=== PATIENT | female | born 1970 | race Caucasian/White ===

== ENCOUNTER 2018-07-25 21:53 | Emergency (ER) | payer BC, OTHER ==
[~2018-07-25] VITALS: Ht 170.2 cm; Wt 82.1 kg
[~2018-07-25 21:53] MED LIST: CIPRO500 MG PO; CYCLOBENZAPRINE5 MG PO; IBUPROFEN400 MG PO; INDERAL PO; LOSARTAN PO; PROPRANOLOL HCL10 MG PO; TYLENOL # 31 EA PO; TYLENOL WITH C1 EAC1 PO; Z TOPAMAX PO; Z.0.FOLIC ACID0.4 MG PO; Z.0.LAMICTAL200 MG PO; Z.0.MOTRIN600 MG PO; Z.0.ZOLOFT100 MG PO; [UNRECOGNIZED DRUG - CODE] PO
--- OUTSIDE RECORDS SUMMARY | 2018-07-25 21:56 | XMS REPORT | Continuity of Care Document ---
Author Author [facility] Address Unknown Phone Unavailable Problems Problem Status Onset Date Classification Date Reported Comments Source Lower respiratory tract infection 01/28/2017 Diagnosis 01/28/2017 [facility] Medications Medication Details Route Status Patient Instructions Ordering Provider Order Date Source Acetaminophen 300 MG / Codeine Phosphate 60 MG Oral Tablet acetaminophen 300 mg-codeine 60 mg tablet TAKE 1 TABLET BY MOUTH EVERY 4 TO 6 HOURS NEEDED FOR PAIN Active [facility] Amoxicillin 875 MG / Clavulanate 125 MG Oral Tablet amoxicillin 875 mg-potassium clavulanate 125 mg tablet Active [facility] 12 HR Amoxicillin 1000 MG / Clavulanate 62.5 MG Extended Release Oral Tablet amoxicillin-potassium clavulanate 1,000 mg-62.5 mg tablet,ext.rel 12hr Active [facility] Carbinoxamine maleate 4 MG Oral Tablet carbinoxamine 4 mg tablet TAKE 1 OR 2 TABLETS BY MOUTH EVERY 8 HOURS Active [facility] Chlordiazepoxide Hydrochloride 5 MG / Clidinium bromide 2.5 MG Oral Capsule chlordiazepoxide-clidinium 5 mg-2.5 mg capsule Active [facility] Cyclobenzaprine hydrochloride 10 MG Oral Tablet cyclobenzaprine 10 mg tablet TAKE 1 TABLET BY MOUTH 3 TIMES A DAY Active [facility] Diazepam 10 MG Oral Tablet diazepam 10 mg tablet TAKE 1/2 TO 1 TABLET BY MOUTH ONCE A DAY Active [facility] doxycycline hyclate 100 MG Oral Capsule doxycycline hyclate 100 mg capsule Active [facility] Fenofibrate 160 MG Oral Tablet fenofibrate 160 mg tablet TAKE 1 TABLET(S) BY MOUTH DAILY Active [facility] Fluarix Quad (PF) 60 mcg (15 mcg x 4)/0.5 mL IM syringe Fluarix Quad (PF) 60 mcg (15 mcg x 4)/0.5 mL IM syringe TO BE ADMINISTERED BY PHARMACIST FOR IMMUNIZATION Active [facility] Fluconazole 150 MG Oral Tablet fluconazole 150 mg tablet Active [facility] Acetaminophen 325 MG / Hydrocodone Bitartrate 10 MG Oral Tablet hydrocodone 10 mg-acetaminophen 325 mg tablet Active [facility] Acetaminophen 325 MG / Hydrocodone Bitartrate 7.5 MG Oral Tablet hydrocodone 7.5 mg-acetaminophen 325 mg tablet Active [facility] 12 HR Hyoscyamine Sulfate 0.375 MG Extended Release Oral Tablet hyoscyamine ER 0.375 mg tablet,extended release,12 hr Active [facility] Hydrochlorothiazide 12.5 MG / Losartan Potassium 50 MG Oral Tablet losartan 50 mg-hydrochlorothiazide 12.5 mg tablet (06-03)TAKE 1 TABLET BY MOUTH EVERY DAY Active [facility] Metronidazole 500 MG Oral Tablet metronidazole 500 mg tablet Active [facility] nabumetone 750 MG Oral Tablet nabumetone 750 mg tablet TAKE 2 TABLET(S) BY MOUTH DAILY Active [facility] Prednisone 20 MG Oral Tablet prednisone 20 mg tablet Active [facility] 200 ACTUAT Albuterol 0.09 MG/ACTUAT Metered Dose Inhaler [ProAir] ProAir HFA 90 mcg/actuation aerosol inhaler INHALE 1-2 PUFFS BY MOUTH EVERY 4-6 HOURS NEEDED Active [facility] Sertraline 100 MG Oral Tablet sertraline 100 mg tablet TAKE 1 TABLET BY MOUTH ONCE DAILY Active [facility] Sertraline 50 MG Oral Tablet sertraline 50 mg tablet TAKE 1 TABLET BY MOUTH EVERY DAY Active [facility] Temazepam 30 MG Oral Capsule temazepam 30 mg capsule TAKE ONE CAPSULE BY MOUTH DAILY BEFORE BEDTIME FOR SLEEP Active [facility] Azithromycin 250 MG Oral Tablet Zithromax Z-Sony 250 mg tablet TAKE 2 TABLETS (500 MG) BY ORAL ROUTE ONCE DAILY FOR 1 DAY THEN 1 TABLET (250 MG) BY ORAL ROUTE ONCE DAILY FOR 4 DAYS Active [facility] Allergies, Adverse Reactions, Alerts Substance Category Reaction Severity Reaction type Status Date Reported Comments Source Cipro Rash Allergy to substance 01/28/2017 [facility] Sulfa (Sulfonamide Antibiotics) Rash Allergy to substance 01/28/2017 [facility] Tramadol Rash Allergy to substance 01/28/2017 [facility] Neurontin Decreased blood pressure Allergy to substance 01/28/2017 [facility] Depakote Decreased blood pressure Allergy to substance 01/28/2017 [facility] Immunizations Immunization Date Given Site Status Last Updated Comments Source Results Order Name Results Value Reference Range Date Interpretation Comments Source Vital Signs Vital Sign Value Date Comments Source Diastolic (mm Hg) 86 01/28/2017 [facility] Height 67 01/28/2017 [facility] Systolic (mm Hg) 122 01/28/2017 [facility] Weight 175 01/28/2017 [facility] Encounters Location Location Details Encounter Type Encounter Number Reason For Visit Attending Provider ADM Date DC Date Status Source [place] - [facility] - [id number] Caraballo, [facility] [address] [place] [address], Ph. [phone] [id number] Joe Caraballo 01/28/2017 [facility] Procedures Procedure Code Date Perfomer Comments Source Hysterectomy [facility]
--- OUTSIDE RECORDS SUMMARY | 2018-07-25 21:56 | XMS REPORT | Encounter Summary ---
Author Organization Unknown Address [address] [place] [address] Phone [phone] Reason for Visit Medical Complaint Instructions 1. Lower respiratory tract infection Zithromax Z-Sony 250 mg tablet Discussion Note: None recorded. Patient educational handouts: No information available. Plan of Care Patient Instructions continue proair as needed. otc heart healthy cough medication as needed. take medication as directed. follow up pcp and have chest xray if not better. Reminders Provider Appointments None recorded. Lab None recorded. Referral None recorded. Procedures None recorded. Surgeries None recorded. Imaging None recorded. Medications Name Start Date acetaminophen 300 mg-codeine 60 mg tablet TAKE 1 TABLET BY MOUTH EVERY 4 TO 6 HOURS NEEDED FOR PAIN amoxicillin 875 mg-potassium clavulanate 125 mg tablet amoxicillin-potassium clavulanate 1,000 mg-62.5 mg tablet,ext.rel 12hr carbinoxamine 4 mg tablet TAKE 1 OR 2 TABLETS BY MOUTH EVERY 8 HOURS chlordiazepoxide-clidinium 5 mg-2.5 mg capsule cyclobenzaprine 10 mg tablet TAKE 1 TABLET BY MOUTH 3 TIMES A DAY diazepam 10 mg tablet TAKE 1/2 TO 1 TABLET BY MOUTH ONCE A DAY doxycycline hyclate 100 mg capsule fenofibrate 160 mg tablet TAKE 1 TABLET(S) BY MOUTH DAILY Fluarix Quad [id number] (PF) 60 mcg (15 mcg x 4)/0.5 mL IM syringe TO BE ADMINISTERED BY PHARMACIST FOR IMMUNIZATION fluconazole 150 mg tablet hydrocodone 10 mg-acetaminophen 325 mg tablet hydrocodone 7.5 mg-acetaminophen 325 mg tablet hyoscyamine ER 0.375 mg tablet,extended release,12 hr losartan 50 mg-hydrochlorothiazide 12.5 mg tablet (06-03)TAKE 1 TABLET BY MOUTH EVERY DAY metronidazole 500 mg tablet nabumetone 750 mg tablet TAKE 2 TABLET(S) BY MOUTH DAILY prednisone 20 mg tablet ProAir HFA 90 mcg/actuation aerosol inhaler INHALE 1-2 PUFFS BY MOUTH EVERY 4-6 HOURS NEEDED sertraline 100 mg tablet TAKE 1 TABLET BY MOUTH ONCE DAILY sertraline 50 mg tablet TAKE 1 TABLET BY MOUTH EVERY DAY temazepam 30 mg capsule TAKE ONE CAPSULE BY MOUTH DAILY BEFORE BEDTIME FOR SLEEP Zithromax Z-Sony 250 mg tablet TAKE 2 TABLETS (500 MG) BY ORAL ROUTE ONCE DAILY FOR 1 DAY THEN 1 TABLET (250 MG) BY ORAL ROUTE ONCE DAILY FOR 4 DAYS Medications Administered None recorded. Vitals Height Weight BMI Blood Pressure 5 ft 7 in 175 lbs 27.4 kg/m2 122/86 mm[Hg] Lab Results None recorded. Allergies Code Code System Name Reaction Severity Status Onset 20341113 RxNorm Cipro Rash Active 21631020 Rx[facility] Depakote Decreased Blood Pressure Active 19640219 Rx[facility] Neurontin Decreased Blood Pressure Active Sulfa (Sulfonamide Antibiotics) Rash Active [facility] Tramadol Rash Active Problems None recorded. Procedures Date Name Performed by Hysterectomy Information not available Vaccine List None recorded. Social History Smoking Status Current Every Day Smoker Past Encounters 01/28/2017 Lower Respiratory Tract Infection Joe Caraballo, [facility]: [address] [place] [address], Ph. History of Present Illness Wheezing / Cough Reported By: Patient HPI: Location: chest. Quality: tightness, wheezing. Severity: moderate. Duration: constant. Onset/Timing: gradual. Context: no sick contacts, no foreign travel, smoker. Modifying factors: OTC medication. Associated Symptoms: no fever, no chills, no sweats, no chest pain, no edema, no heartburn, no sputum production, no significant weight gain, no significant weight loss, no morning cough, no post nasal drip, no sore throat, no nausea, no vomiting, no diarrhea, no rash, no muscle aches, no headache, shortness of breath, wheezing Review of Systems:ROS as noted in the HPI Review of Systems Basic Reported By: Patient Physical Exam Adult Basic, Adult Female Complete Reported By: Patient Constitutional: General Appearance: healthy-appearing, well-nourished, well-developed. Level of Distress: NAD. Ambulation: ambulating normally Psychiatric: Mental Status: active and alert Eyes: Lids and Conjunctivae: non-injected, no discharge Ftl-Qzjg-Cvwql-Throat: Ears: no lesions on external ear, no outer ear tenderness, EACs clear, TMs clear. Hearing: no hearing loss. Nose: no lesions on external nose, nares patent, no septal deviation, nasal passages clear, no sinus tenderness, no nasal discharge. Lips, Teeth, and Gums: no mouth or lip ulcers. Oropharynx: moist mucous membranes, no erythema, no exudates, tonsils not enlarged Neck: Neck: trachea midline. Lymph Nodes: no cervical LAD Lungs: Respiratory effort: no dyspnea, no tachypnea, no use of accessory muscles, no intercostal retractions. Auscultation: rhonchi Cardiovascular: Heart Auscultation: RRR, no murmurs
--- OUTSIDE RECORDS SUMMARY | 2018-07-25 21:56 | XMS REPORT ---
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 Allergies, Adverse Reactions, Alerts Allergy Name Allergy Type Status Severity Reaction(s) Onset Date Inactive Date Treating Clinician Comments morphine DA Active [place] 2015-04-08 00:00:00 pseudoephedrine HCl DA Active [place] 2009-10-22 00:00:00 propoxyphene DA Active [place] 2009-10-22 00:00:00 divalproex sodium DA Active 2009-10-22 00:00:00 sulfamethoxazole DA Active [place] 2009-10-22 00:00:00 trimethoprim DA Active [place] 2009-10-22 00:00:00 gabapentin DA Active 2009-10-22 00:00:00 latex DA Active [place] 2009-10-22 00:00:00 Medications This patient has no known medications.
[2018-07-25] MEDS ORDERED: ONDANSETRON HCL INJ 2MG/ML 2ML 2 MG/ML VIAL IV STA (22:24)
[2018-07-25] MEDS ORDERED: SODIUM CHLORIDE 0.9% 1000ML 1,000 ML IV ONE (22:30)
[2018-07-25 23:20] LABS: CLARITY,URINE CLEAR (CLEAR); COLOR,URINE YELLOW (YELLOW)
[2018-07-25 23:21] LABS: BILIRUBIN,URINE NEGATIVE (NEGATIVE); KETONES,URINE NEGATIVE (NEGATIVE); LEUKOCYTE ESTERASE ,URINE NEGATIVE (NEGATIVE); NITRITE,URINE NEGATIVE (NEGATIVE); PROTEIN,URINE DIPSTICK NEGATIVE (NEGATIVE); URINE UROBILINOGEN 1 mg/dL (0.2 - 1)
[2018-07-25 23:22] LABS: PREGNANCY TEST, URINE NEGATIVE (NEGATIVE)
[2018-07-25 23:34] LABS: BACTERIA,URINE MANY /HPF; EPITHELIAL CELLS,URINE FEW /LPF; RBC,URINE 0-5 /HPF (0-5); WBC,URINE (MAN) 0-5 /HPF (0-5)
[2018-07-25 23:35] LABS: BASOPHILS # (AUTO) 0.1 (0.0-0.1); BASOPHILS % 0.8 % (0.0-1.0); EOSINOPHILS # (AUTO) 0.2 (0.0-0.4); EOSINOPHILS % 1.9 % (0.0-6.0); HEMATOCRIT 37.2 % (34.2-44.1); HEMOGLOBIN 12.7 g/dL (12.0-16.0); LYMPHOCYTES % 34.4 % (18.0-39.1); MEAN CORPUSCULAR HEMOGLOBIN 32.6 pg (28-32); MEAN CORPUSCULAR HGB CONC 34.1 g/dL (31-35); MEAN CORPUSCULAR VOLUME 95.4 fL (81-99); MONOCYTES # (AUTO) 0.3 (0.2-0.8); MONOCYTES % 3.5 % (4.4-11.3); NEUTROPHILS # (AUTO) 5.1 (2.1-6.9); NEUTROPHILS % 59.3 % (38.7-80.0); PLATELET COUNT 291 x10e3/uL (140-360); RED CELL DISTRIBUTION WIDTH 12.9 % (11.7-14.4)
--- NOTE | 2018-07-25 23:53 | Diagnostic Imaging Report ---
EXAM: CT Abdomen and Pelvis WITHOUT contrast INDICATION: right flank pain COMPARISON: CT abdomen and pelvis 07/08/2015 TECHNIQUE: Abdomen and pelvis were scanned utilizing a multidetector helical scanner from the lung base to the pubic symphysis without administration of IV contrast. Absence of intravenous contrast decreases sensitivity for detection of focal lesions and vascular pathology. Coronal and sagittal reformations were obtained. Routine protocol was performed. IV CONTRAST: None ORAL CONTRAST: Water COMPLICATIONS: None RADIATION DOSE: Total DLP: 503.5 mGy*cm Estimated effective dose: (DLP x 0.015 x size factor) mSv Dose modulation, iterative reconstruction, and/or weight based adjustment of the mA/kV was utilized to reduce the radiation dose to as low as reasonably achievable. FINDINGS: LINES and TUBES: None. LOWER THORAX: Unremarkable HEPATOBILIARY: No focal hepatic lesions. No biliary ductal dilation. GALLBLADDER: Absent SPLEEN: No splenomegaly. PANCREAS: No focal masses or ductal dilatation. ADRENALS: No adrenal nodules KIDNEYS/URETERS: No hydronephrosis. No cystic or solid mass lesions. No stones. GI TRACT: No abnormal distention, wall thickening, or evidence of bowel obstruction. Submucosal fat deposition in the ascending and transverse colon. Moderate volume stool. Appendix is normal. PELVIC ORGANS/BLADDER: Hysterectomy. Otherwise, unremarkable. LYMPH NODES: No lymphadenopathy. VESSELS: There is mild atherosclerotic disease in the aorta and major arterial branches. PERITONEUM / RETROPERITONEUM: No free air or fluid. BONES: There are degenerative changes in the lumbar spine, worse at L3-L4 and L4-L5 endplate sclerosis and vacuum disc. Old healed fracture of the left inferior pubic ramus. SOFT TISSUES: Postsurgical changes in the posterior lumbar soft tissues. Right lower back 1.3 cm sebaceous cyst. IMPRESSION: No acute abnormalities. No nephrolithiasis. Signed by: DR. Sarmad Bermeo MD on 07/25/2018 11:50 PM
[2018-07-25 23:56] LABS: ALANINE AMINOTRANSFERASE 16 IU/L (0-55); ALBUMIN 3.4 g/dL (3.5-5.0); ALBUMIN/GLOBULIN RATIO 1.3 (0.8-2.0); ALKALINE PHOSPHATASE 76 IU/L (40-150); ANION GAP 11.8 mmol/L (8-16); BLOOD UREA NITROGEN 13 mg/dL (7-26); BUN/CREATININE RATIO 17 (6-25); CALCIUM 8.9 mg/dL (8.4-10.2); CARBON DIOXIDE 22 mmol/L (22-29); CHLORIDE 107 mmol/L (98-107); CREATININE, SERUM 0.75 mg/dL (0.57-1.11); EST GLOMERULAR FILTRATION RATE > 60 ML/MIN (60-); GLUCOSE 100 mg/dL (74-118); POTASSIUM 3.8 mmol/L (3.5-5.1); SODIUM 137 mmol/L (136-145)
[2018-07-26 00:27] VITALS: BP 126/78
== END 2018-07-26 00:38 | disposition home or self-care (01) ==
LOC: ER 21:53
DX: R10.31 Right lower quadrant pain (principal); R11.0 Nausea; S39.011A Strain of muscle, fascia and tendon of abdomen, initial encounter; M54.5 Low back pain
CPT/HCPCS: 36415; 74176; 80053; 81001; 81025; 85025; 99284; J2405; J7030

== ENCOUNTER 2018-10-01 05:51 | Emergency (ER) | payer OTHER ==
[~2018-10-01] VITALS: Ht 170.2 cm; Wt 82.1 kg
[2018-10-01] MEDS ORDERED: LOSARTAN-HCTZ1 EACH PO (06:08)
[2018-10-01] MEDS ORDERED: ACETAMINOPHEN-1 EAC4 PO (06:08)
[2018-10-01] MEDS ORDERED: TEMAZEPAM30 MG PO (06:08)
[2018-10-01] MEDS ORDERED: CYCLOBENZAPRINE10 MG PO (06:08)
[2018-10-01] MEDS ORDERED: SERTRALINE HCL100 MG PO (06:08)
[2018-10-01] MEDS ORDERED: DIAZEPAM10 MG PO (06:08)
== END 2018-10-01 06:49 | disposition home or self-care (01) ==
LOC: ER 05:51
DX: S80.01XA Contusion of right knee, initial encounter (principal); W22.8XXA Striking against or struck by other objects, initial encounter; Y92.008 Other place in unspecified non-institutional (private) residence as the place of occurrence of the external cause; I10 Essential (primary) hypertension
CPT/HCPCS: 99282

== ENCOUNTER 2019-08-01 06:30 | Emergency (ER) | payer SELFPAY ==
[~2019-08-01] VITALS: Ht 170.2 cm; Wt 82.1 kg
[~2019-08-01 06:30] MED LIST changes: +ACETAMINOPHEN-1 EAC4 PO; +CYCLOBENZAPRINE10 MG PO; +DIAZEPAM10 MG PO; +LOSARTAN-HCTZ1 EACH PO; +SERTRALINE HCL100 MG PO; +TEMAZEPAM30 MG PO
--- OUTSIDE RECORDS SUMMARY | 2019-08-01 06:34 | XMS REPORT ---
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 Allergies, Adverse Reactions, Alerts Allergy Name Allergy Type Status Severity Reaction(s) Onset Date Inactive Date Treating Clinician Comments morphine DA Active [place] 2015-04-08 00:00:00 pseudoephedrine HCl DA Active ND 2009-10-22 00:00:00 propoxyphene DA Active ND 2009-10-22 00:00:00 divalproex sodium DA Active 2009-10-22 00:00:00 sulfamethoxazole DA Active ND 2009-10-22 00:00:00 trimethoprim DA Active ND 2009-10-22 00:00:00 gabapentin DA Active 2009-10-22 00:00:00 latex DA Active ND 2009-10-22 00:00:00 Medications This patient has no known medications. Encounters Start Date/Time End Date/Time Encounter Type Admission Type Attending Clinicians Care Facility Care Department Encounter ID 2018-10-01 05:12:00 2018-10-01 05:12:00 Emergency [id number] Results Test Description Test Time Test Comments Text Results Atomic Results Result Comments CT ABDOMEN/PELVIS WO 2018-07-25 23:42:00 [place] [address] Patient Name: EL HARRINGTON MR #: [id number] : 1970 [facility] 48[id number] Req #: [id number] Adm Physician: Ordered by: JULITO HENLEY MD Report #: [id number] Location: ER Room/Bed: Procedure: [id number] CT/CT ABDOMEN/PELVIS WO Exam Date: 07/25/18 Exam Time: 2250 REPORT STATUS: Signed EXAM: CT Abdomen and Pelvis WITHOUT contrast INDICATION: right flank pain COMPARISON: CT abdomen and pelvis 07/08/2015 TECHNIQUE: Abdomen and pelvis were scanned utilizing a multidetector helical scanner from the lung base to the pubic symphysis without administration of IV contrast. Absence of intravenous contrast decreases sensitivity for detection of focal lesions and vascular pathology. Coronal and sagittal reformations were obtained. Routine protocol was performed. IV CONTRAST: None ORAL CONTRAST: Water COMPLICATIONS: None RADIATION DOSE: Total DLP: 503.5 mGy*cm Estimated effective dose: (DLP x 0.015 x size factor) mSv Dose modulation, iterative reconstruction, and/or weight based adjustment of the mA/kV was utilized to reduce the radiation dose to as low as reasonably achievable. FINDINGS: LINES and TUBES: None. LOWER THORAX: Unremarkable HEPATOBILIARY: No focal hepatic lesions. No biliary ductal dilation. GALLBLADDER: Absent SPLEEN: No splenomegaly. PANCREAS: No focal masses or ductal dilatation. ADRENALS: No adrenal nodules KIDNEYS/URETERS: No hydronephrosis. No cystic or solid mass lesions. No stones. GI TRACT: No abnormal distention, wall thickening, or evidence of bowel obstruction. Submucosal fat deposition in the ascending and transverse colon. Moderate volume stool. Appendix is normal. PELVIC ORGANS/BLADDER: Hysterectomy. Otherwise, unremarkable. LYMPH NODES: No lymphadenopathy. VESSELS: There is mild atherosclerotic disease in the aorta and major arterial branches. PERITONEUM / RETROPERITONEUM: No free air or fluid. BONES: There are degenerative changes in the lumbar spine, worse at L3-L4 and L4-L5 endplate sclerosis and vacuum disc. Old healed fracture of the left inferior pubic ramus. SOFT TISSUES: Postsurgical changes in the posterior lumbar soft tissues. Right lower back 1.3 cm sebaceous cyst. IMPRESSION: No acute abnormalities. No nephrolithiasis. Signed by: DR. Sarmad Cantu MD on 07/25/2018 11:50 PM Dictated By: SARMAD CANTU MD [id number] Transcribed By: FABIOLA on 07/25/18 [id number] COPY TO: JULITO HENLEY MD
[2019-08-01] MEDS ORDERED: SODIUM CHLORIDE 0.9% 1000ML 1,000 ML IV STA (06:47)
[2019-08-01] MEDS ORDERED: ASPIRIN 81 MG CHEW TAB PO ONE (07:00)
[2019-08-01] MEDS ORDERED: PIPER-TAZ 3.375 GM 50 ML IV SCH (07:00)
[2019-08-01] MEDS ORDERED: KETOROLAC TROMETHAMINE 30 MG/ML VIAL IV STA (07:03)
[2019-08-01 07:11] LABS: BASOPHILS # (AUTO) 0.1 (0.0-0.1); BASOPHILS % 0.4 % (0.0-1.0); EOSINOPHILS # (AUTO) 0.5 (0.0-0.4); EOSINOPHILS % 3.5 % (0.0-6.0); HEMATOCRIT 31.4 % (34.2-44.1); HEMOGLOBIN 10.4 g/dL (12.0-16.0); LYMPHOCYTES % 23.8 % (18.0-39.1); MEAN CORPUSCULAR HGB CONC 33.1 g/dL (31-35); MEAN CORPUSCULAR VOLUME 99.7 fL (81-99); MONOCYTES # (AUTO) 0.9 (0.2-0.8); NEUTROPHILS # (AUTO) 7.8 (2.1-6.9); NEUTROPHILS % 61.5 % (38.7-80.0); PLATELET COUNT 378 x10e3/uL (140-360); RED BLOOD COUNT 3.15 x10e6/uL (3.6-5.1); RED CELL DISTRIBUTION WIDTH 13.4 % (11.7-14.4)
[2019-08-01] MEDS ORDERED: ACETAMINOPHEN 325 MG TAB PO ONE (07:15)
[2019-08-01 07:18] LABS: CLARITY,URINE SL CLOUDY (CLEAR); COLOR,URINE YELLOW (YELLOW); LEUKOCYTE ESTERASE ,URINE NEGATIVE (NEGATIVE); NITRITE,URINE NEGATIVE (NEGATIVE); PROTEIN,URINE DIPSTICK NEGATIVE (NEGATIVE)
[2019-08-01 07:19] LABS: BACTERIA,URINE RARE /HPF; BILIRUBIN,URINE SMALL (NEGATIVE); EPITHELIAL CELLS,URINE FEW /LPF; KETONES,URINE TRACE (NEGATIVE); RBC,URINE 0-5 /HPF (0-5); URINE UROBILINOGEN 1 mg/dL (0.2 - 1); WBC,URINE (MAN) 0-5 /HPF (0-5)
[2019-08-01 07:31] LABS: ALANINE AMINOTRANSFERASE 51 IU/L (0-55); ALBUMIN 2.4 g/dL (3.5-5.0); ALBUMIN/GLOBULIN RATIO 0.7 (0.8-2.0); ALKALINE PHOSPHATASE 189 IU/L (40-150); ANION GAP 11.2 mmol/L (8-16); BLOOD UREA NITROGEN 12 mg/dL (7-26); BUN/CREATININE RATIO 18 (6-25); CALCIUM 9.1 mg/dL (8.4-10.2); CARBON DIOXIDE 26 mmol/L (22-29); CHLORIDE 104 mmol/L (98-107); CREATINE KINASE 24 IU/L (29-168); CREATININE, SERUM 0.68 mg/dL (0.57-1.11); EST GLOMERULAR FILTRATION RATE > 60 ML/MIN (60-); GLUCOSE 79 mg/dL (74-118); POTASSIUM 4.2 mmol/L (3.5-5.1); SODIUM 137 mmol/L (136-145)
--- NOTE | 2019-08-01 07:38 | Diagnostic Imaging Report ---
EXAMINATION: CHEST 2 VIEWS INDICATION: ^fever ^[id number] ^[id number] COMPARISON: No relevant priors FINDINGS: PA and lateral views TUBES and LINES: None. LUNGS: Lungs are well inflated. There is no evidence of pneumonia or pulmonary edema. PLEURA: No pleural effusion or pneumothorax. HEART AND MEDIASTINUM: The cardiomediastinal silhouette is unremarkable.. BONES AND SOFT TISSUES: No focal osseous lesions. Partially visualized fusion plate in the lower cervical spine is intact. Soft tissues are unremarkable. UPPER ABDOMEN: Cholecystectomy clips in the right upper quadrant. IMPRESSION: No acute thoracic abnormality. Signed by: Dr. Marcio Huddleston MD on 08/01/2019 7:36 AM
--- NOTE | 2019-08-01 08:36 | Diagnostic Imaging Report ---
CT of the abdomen and pelvis, with contrast. History: Abdominal pain, fever. Comparison: CT abdomen/pelvis without contrast from 07/25/2018. Technique: Multidetector CT scanning of the abdomen and pelvis was performed from the level of the lung bases to the inferior pubic rami after intravenous and oral administration of contrast. Coronal and sagittal multiplanar reformations were obtained. RADIATION DOSE: Total DLP: 674.33 mGy*cm Dose modulation, iterative reconstruction, and/or weight based adjustment of the mA/kV was utilized to reduce the radiation dose to as low as reasonably achievable. FINDINGS: The visualized lungs are unremarkable. The imaged portion of the heart demonstrates no significant abnormalities. Partially visualized bilateral breast prostheses are noted. The liver is mildly prominent but normal in attenuation without evidence for focal abnormality. The gallbladder is surgically absent. There is no intrahepatic biliary ductal dilatation. There is stable mild prominence of the common bile duct measuring up to 0.9 cm, likely reflecting post cholecystectomy status. The stomach, spleen, pancreas, and bilateral adrenal glands are unremarkable. The kidneys are normal in size and location and enhance symmetrically. There is no evidence for hydronephrosis. The ureters are normal course and caliber. The partially distended urinary bladder demonstrate no significant abnormalities. The uterus is surgically absent. No abnormal adnexal masses are identified. The abdominal aorta is normal course and caliber with atherosclerotic calcifications. The IVC is unremarkable. Please note evaluation the bowel is limited without the use of enteric contrast material. The visualized loops of small and large bowel demonstrate no evidence of obstruction or inflammation. The appendix is visualized and appears unremarkable. There is no ascites or intraperitoneal free air. No abnormally enlarged lymph nodes are identified within the abdomen or pelvis. Degenerative changes of the spine, most prominent at L3-L4 and L4-L5 where there is intervertebral disc space narrowing and endplate sclerosis. Findings are symmetrically examination. Remote/healed fracture again noted of the left inferior pubic ramus. The osseous structures demonstrate no evidence for acute fracture or destructive process. There is body wall edema present. Additionally, small foci air noted within the subcutaneous tissues of the right lower back which may reflect sequela of recent injection site. IMPRESSION: No acute abdominopelvic process identified. Status post cholecystectomy and hysterectomy. Body wall edema. Signed by: Dr. Clark Locke MD on 08/01/2019 8:33 AM
[2019-08-01 09:05] VITALS: BP 109/71
[2019-08-01] MEDS ORDERED: IOPAMIDOL 370 MG/ML 50ML INFUS..BTL INJ ONE (14:15)
== END 2019-08-01 09:12 | disposition home or self-care (01) ==
LOC: ER 06:30
DX: R50.9 Fever, unspecified (principal); L03.312 Cellulitis of back [any part except buttock and flank]; I10 Essential (primary) hypertension; Z87.442 Personal history of urinary calculi
CPT/HCPCS: 36415; 71046; 74177; 80053; 81001; 82550; 82553; 83605; 84484; 85025; 87040; 93005; 99284; J1885; J2543; J7030; Q9967

== ENCOUNTER 2019-08-14 15:48 | Emergency (ER) | payer SELFPAY ==
[~2019-08-14] VITALS: Ht 170.2 cm; Wt 82.1 kg
== END 2019-08-14 16:30 | disposition home or self-care (01) ==
LOC: ER 15:48
DX: L02.212 Cutaneous abscess of back [any part, except buttock and flank] (principal); F17.210 Nicotine dependence, cigarettes, uncomplicated
CPT/HCPCS: 99283

== ENCOUNTER 2022-01-01 06:44 | Emergency (ER) | payer OTHER ==
[~2022-01-01] VITALS: Ht 170.2 cm; Wt 82.1 kg
[2022-01-01] MEDS ORDERED: SODIUM CHLORIDE 0.9% 1000ML 1,000 ML IV STA (07:06)
[2022-01-01] MEDS ORDERED: KETOROLAC TROMETHAMINE 30 MG/ML VIAL IV STA (07:06)
[2022-01-01] MEDS ORDERED: ONDANSETRON HCL INJ 2MG/ML 2ML 2 MG/ML VIAL IV STA (07:06)
[2022-01-01 07:44] LABS: BASOPHILS # (AUTO) 0.1 (0.0-0.1); BASOPHILS % 0.6 % (0.0-1.0); EOSINOPHILS # (AUTO) 0.2 (0.0-0.4); EOSINOPHILS % 1.7 % (0.0-6.0); HEMATOCRIT 35.5 % (34.2-44.1); LYMPHOCYTES # (AUTO) 3.5 (1.0-3.2); LYMPHOCYTES % 33.8 % (18.0-39.1); MEAN CORPUSCULAR HEMOGLOBIN 32.9 pg (28-32); MEAN CORPUSCULAR HGB CONC 33.8 g/dL (31-35); MEAN CORPUSCULAR VOLUME 97.3 fL (81-99); MONOCYTES # (AUTO) 0.7 (0.2-0.8); MONOCYTES % 6.4 % (4.4-11.3); NEUTROPHILS # (AUTO) 5.9 (2.1-6.9); NEUTROPHILS % 57.2 % (38.7-80.0); PLATELET COUNT 252 x10e3/uL (140-360); RED BLOOD COUNT 3.65 x10e6/uL (3.6-5.1); RED CELL DISTRIBUTION WIDTH 13.7 % (11.7-14.4)
[2022-01-01 07:59] LABS: INR 0.87; PROTHROMBIN TIME 12.7 seconds (11.9-14.5)
[2022-01-01 08:07] LABS: CLARITY,URINE CLEAR (CLEAR); COLOR,URINE YELLOW (YELLOW)
[2022-01-01 08:08] LABS: KETONES,URINE NEGATIVE (NEGATIVE); LEUKOCYTE ESTERASE ,URINE NEGATIVE (NEGATIVE); NITRITE,URINE POSITIVE (NEGATIVE); PROTEIN,URINE DIPSTICK NEGATIVE (NEGATIVE); URINE UROBILINOGEN 0.2 mg/dL (0.2 - 1)
[2022-01-01 08:10] LABS: BACTERIA,URINE FEW /HPF; EPITHELIAL CELLS,URINE FEW /LPF; RBC,URINE 0-5 /HPF (0-5); WBC,URINE (MAN) 0-5 /HPF (0-5)
[2022-01-01 08:13] LABS: ALANINE AMINOTRANSFERASE 30 IU/L (0-55); ALBUMIN 3.3 g/dL (3.5-5.0); ALBUMIN/GLOBULIN RATIO 1.1 (0.8-2.0); ALKALINE PHOSPHATASE 76 IU/L (40-150); ANION GAP 14.6 mmol/L (8-16); BLOOD UREA NITROGEN 7 mg/dL (7-26); BUN/CREATININE RATIO 9 (6-25); CALCIUM 8.8 mg/dL (8.4-10.2); CARBON DIOXIDE 24 mmol/L (22-29); CHLORIDE 104 mmol/L (98-107); CREATINE KINASE 52 IU/L (29-168); CREATININE, SERUM 0.81 mg/dL (0.57-1.11); GLUCOSE 83 mg/dL (74-118); POTASSIUM 3.6 mmol/L (3.5-5.1); SODIUM 139 mmol/L (136-145)
[2022-01-01] MEDS ORDERED: IOPAMIDOL 370 MG/ML 100 ML INFUS..BTL INJ ONE (08:33)
== END 2022-01-01 10:47 | disposition home or self-care (01) ==
LOC: ER 06:51
DX: R07.89 Other chest pain (principal); I10 Essential (primary) hypertension; F32.A Depression, unspecified; Z87.442 Personal history of urinary calculi; F17.210 Nicotine dependence, cigarettes, uncomplicated
CPT/HCPCS: 36415; 71260; 74176; 80053; 81001; 82550; 82553; 84484; 85025; 85610; 85730; 87086; 93005; 99284; C9113; J1885; J2405; J7030; Q9967; U0002

== ENCOUNTER 2022-03-22 10:03 | Emergency (ER) | payer OTHER ==
[~2022-03-22] VITALS: Ht 170.2 cm; Wt 82.1 kg
[2022-03-22] MEDS ORDERED: KETOROLAC TROMETHAMINE 30 MG/ML VIAL IM PRN (10:45)
[2022-03-22] MEDS ORDERED: NAPROXEN250 MG PO (12:28)
== END 2022-03-22 12:33 | disposition home or self-care (01) ==
LOC: ER 10:17
DX: M25.551 Pain in right hip (principal); M25.561 Pain in right knee; M54.50 Low back pain, unspecified; W18.09XA Striking against other object with subsequent fall, initial encounter; Y93.01 Activity, walking, marching and hiking; Y92.89 Other specified places as the place of occurrence of the external cause; I10 Essential (primary) hypertension; G89.29 Other chronic pain; F41.9 Anxiety disorder, unspecified; Z87.442 Personal history of urinary calculi; F17.210 Nicotine dependence, cigarettes, uncomplicated
CPT/HCPCS: 72100; 73502; 73562; 99283; J1885

== ENCOUNTER 2022-05-10 06:52 | Emergency (ER) | payer SELFPAY ==
[~2022-05-10] VITALS: Ht 170.2 cm; Wt 82.1 kg
[~2022-05-10 06:52] MED LIST changes: +NAPROXEN250 MG PO
[2022-05-10] MEDS ORDERED: IBUPROFEN 600 MG TAB PO STA (07:01)
== END 2022-05-10 09:24 | disposition home or self-care (01) ==
LOC: ER 06:58
DX: S93.602A Unspecified sprain of left foot, initial encounter (principal); X50.1XXA Overexertion from prolonged static or awkward postures, initial encounter; Y93.01 Activity, walking, marching and hiking
CPT/HCPCS: 99283

== ENCOUNTER 2023-10-11 17:58 | Emergency (ER) | payer SELFPAY ==
[~2023-10-11] VITALS: Ht 170.2 cm; Wt 82.1 kg
[2023-10-11 18:46] LABS: BASOPHILS # (AUTO) 0.1 (0.0-0.1); BASOPHILS % 0.9 % (0.0-1.0); EOSINOPHILS # (AUTO) 0.4 (0.0-0.4); EOSINOPHILS % 4.8 % (0.0-6.0); HEMATOCRIT 37.9 % (34.2-44.1); HEMOGLOBIN 13.4 g/dL (12.0-16.0); LYMPHOCYTES # (AUTO) 3.8 (1.0-3.2); LYMPHOCYTES % 41.1 % (18.0-39.1); MEAN CORPUSCULAR HEMOGLOBIN 34.7 pg (28-32); MEAN CORPUSCULAR HGB CONC 35.4 g/dL (31-35); MEAN CORPUSCULAR VOLUME 98.2 fL (81-99); MONOCYTES # (AUTO) 0.5 (0.2-0.8); MONOCYTES % 5.2 % (4.4-11.3); NEUTROPHILS # (AUTO) 4.4 (2.1-6.9); NEUTROPHILS % 47.8 % (38.7-80.0); PLATELET COUNT 243 x10e3/uL (140-360); RED BLOOD COUNT 3.86 x10e6/uL (3.6-5.1); RED CELL DISTRIBUTION WIDTH 12.6 % (11.7-14.4); WHITE BLOOD COUNT 9.22 x10e3/uL (4.8-10.8)
[2023-10-11 19:05] LABS: CLARITY,URINE SL CLOUDY (CLEAR); COLOR,URINE YELLOW (YELLOW)
[2023-10-11 19:06] LABS: BILIRUBIN,URINE NEGATIVE (NEGATIVE); GLUCOSE, URINE NEGATIVE (NEGATIVE); KETONES,URINE NEGATIVE (NEGATIVE); LEUKOCYTE ESTERASE ,URINE NEGATIVE (NEGATIVE); NITRITE,URINE NEGATIVE (NEGATIVE); PH,URINE 6 (5 - 7); PROTEIN,URINE DIPSTICK NEGATIVE (NEGATIVE); URINE UROBILINOGEN 0.2 mg/dL (0.2 - 1)
[2023-10-11 19:08] LABS: AMPHETAMINES SCREEN,URINE NEGATIVE (NEGATIVE); BENZODIAZEPINES SCREEN,URINE POSITIVE (NEGATIVE); CANNABINOIDS SCREEN,URINE NEGATIVE (NEGATIVE); METHADONE SCREEN, URINE NEGATIVE (NEGATIVE); OPIATES SCREEN,URINE POSITIVE (NEGATIVE); PHENCYCLIDINE SCREEN,URINE NEGATIVE (NEGATIVE)
[2023-10-11 19:08] LABS: ALBUMIN 3.8 g/dL (3.5-5.0); ALBUMIN/GLOBULIN RATIO 1.5 (0.8-2.0); ANION GAP 15.3 mmol/L (8-16); BILIRUBIN,TOTAL 0.2 mg/dL (0.2-1.2); CREATINE KINASE 51 IU/L (29-168); CREATININE, SERUM 0.81 mg/dL (0.57-1.11); POTASSIUM 4.3 mmol/L (3.5-5.1); TOTAL PROTEIN 6.3 g/dL (6.5-8.1)
[2023-10-11 19:17] LABS: TROPONIN I < 0.001 ng/mL (0-0.300)
[2023-10-11 19:20] LABS: BACTERIA,URINE FEW /HPF; EPITHELIAL CELLS,URINE FEW /LPF; RBC,URINE 0-5 /HPF (0-5); TRANSITIONAL EPI CELLS,URINE FEW
[2023-10-11] MEDS ORDERED: IOPAMIDOL 370 MG/ML 100 ML INFUS..BTL INJ ONE (19:20)
[2023-10-11] MEDS: KETOROLAC TROMETHAMINE 30 MG/ML VIAL IV STA (19:41)
[2023-10-11] MEDS: SODIUM CHLORIDE 0.9% 1000ML 1,000 ML IV STA (19:41)
[2023-10-11 20:27] VITALS: O2SAT 100
[2023-10-11] MEDS ORDERED: KETOROLAC TROME10 MG PO (20:29)
[2023-10-11] MEDS ORDERED: CEPHALEXIN500 MG PO (20:29)
== END 2023-10-11 20:31 | disposition home or self-care (01) ==
LOC: VACCPMC 18:20
DX: R10.30 Lower abdominal pain, unspecified (principal); M54.9 Dorsalgia, unspecified; R30.0 Dysuria; R11.0 Nausea; I10 Essential (primary) hypertension; J44.9 Chronic obstructive pulmonary disease, unspecified; F41.9 Anxiety disorder, unspecified; Z87.442 Personal history of urinary calculi
CPT/HCPCS: 36415; 74177; 80053; 80307; 80320; 81001; 82550; 83690; 84484; 85025; 99284; J1885; J7030; Q9967